=== PATIENT | male | born 1990 | race Caucasian/White ===

== ENCOUNTER 2019-02-17 08:27 | Emergency (ER) | payer BC, OTHER | END 2019-02-17 10:19 | disposition home or self-care (01) | LOC: FER 08:27 ==

== ENCOUNTER 2023-05-31 17:20 | Emergency (ER) | payer BC ==
[2023-05-31] MEDS ORDERED: ALBUTEROL SO4 2.5/IPRATROPIUM 0.5 INH SOL 3 ML VIAL.NEB. NEB ONE ×2 (17:27→17:28)
[2023-05-31 17:29] VITALS: BP 152/91; PULSE 112; RESP 18; TEMP 98.7; BMI 36.6
[2023-05-31] MEDS ORDERED: KETOROLAC TROMETHAMINE 15 MG/ML VIAL IVPUSH ONE (17:35)
[2023-05-31] MEDS ORDERED: SODIUM CHLORIDE 0.9% 500 ML INFUS.BAG IV ONE (17:36)
[2023-05-31] MEDS ORDERED: KETOROLAC TROMETHAMINE 15 MG/ML VIAL ONE (17:52)
[2023-05-31 18:15] LABS: HEMATOCRIT 45.8 % (35.4-49); HEMOGLOBIN 15.7 G/dL (11.7-16.9); MCH 29.7 pg (25.7-33.7); MCHC 34.2 g/dl (32.0-35.9); MEAN PLT VOLUME 7.7 fl (7.5-11.1); PLATELET COUNT 350.8 10^3/uL (134-434); RBC 5.27 10^6/uL (4.00-5.60); RDW 13.9 % (11.9-15.9); WHITE BLOOD COUNT 13.8 10^3/uL (4.0-10.8)
[2023-05-31 18:28] LABS: ALK PHOS 102 U/L (45-117); ANION GAP 11 mmol/L (4-13); BILIRUBIN,TOTAL 0.6 mg/dl (0.2-1); CALCIUM 10.1 mg/dl (8.5-10.1); CHLORIDE 99 mmol/L (98-107); CO2 26 mmol/L (21-32); CREATININE 0.7 mg/dl (0.6-1.3); GLUCOSE,RANDOM 94 mg/dl (74-106); POTASSIUM 3.7 mmol/L (3.5-5.1); SGOT/AST 48 U/L (15-37); SGPT/ALT 113 U/L (7-52); SODIUM 136 mmol/L (136-145); TOT PROT 7.8 g/dl (6.4-8.2)
[2023-05-31] MEDS ORDERED: ALBUTEROL SO4 HFA INHALER IH ONE ×2 (18:36→18:49)
[2023-05-31 20:04] LABS: N-TERMINAL BNP < 5.0 pg/ml (5-125)
[2023-05-31 21:03] LABS: PLATELET ESTIMATE ADEQUATE
== END 2023-05-31 18:53 | disposition home or self-care (01) ==
LOC: FER 17:20
PROC: 3E0333Z Introduction of Anti-inflammatory into Peripheral Vein, Percutaneous Approach (ICD-10-PCS; principal; 2023-05-31)
PROC: 3E0F7GC Introduction of Other Therapeutic Substance into Respiratory Tract, Via Natural or Artificial Opening (ICD-10-PCS; 2023-05-31)
PROC: 3E0F7GC Introduction of Other Therapeutic Substance into Respiratory Tract, Via Natural or Artificial Opening (ICD-10-PCS; 2023-05-31)
PROC: 3E0F7GC Introduction of Other Therapeutic Substance into Respiratory Tract, Via Natural or Artificial Opening (ICD-10-PCS; 2023-05-31)
DX: R07.81 Pleurodynia (principal); R05.9 Cough, unspecified; R06.02 Shortness of breath; J20.9 Acute bronchitis, unspecified; Z20.822 Contact with and (suspected) exposure to COVID-19
CPT/HCPCS: 0241U-QW; 36415; 71046-TC-FY; 80053; 83880; 84484; 85027; 85379; 93005; 99285-25